=== PATIENT | male | born 1990 | race Two or more races ===

== ENCOUNTER 2020-07-11 14:12 | Emergency (ER) | payer OTHER ==
[~2020-07-11] VITALS: Ht 172.7 cm; Wt 86.2 kg
[2020-07-11 14:49] VITALS: BP 151/85
--- NOTE | 2020-07-11 14:55 | NUR ---
BIB SELF C/O COUGH,ALMARAZ, COUGH, SORE THROAT 7/10 X LAST NIGHT. COWORKER HAD COVID TESTED + LAST WEEK. PMH: DENIES
--- NOTE | 2020-07-11 15:40 | NUR ---
COVID SWAB DONE.
[2020-07-11 15:45] VITALS: BP 151/85
--- NOTE | 2020-07-11 15:45 | NUR ---
Patient discharged with v/s stable. Written and verbal after care instructions given and explained. Patient alert, oriented and verbalized understanding of instructions. Ambulatory with steady gait. All questions addressed prior to discharge. ID band removed. Patient advised to follow up with PMD. Rx of PROMETHZINE&IBUPROFEN given. Patient educated on indication of medication including possible reaction and side effects. Opportunity to ask questions provided and answered.
--- NOTE | 2020-07-12 18:58 | NUR ---
Received + covid result from lab. Copy given to Almita at infection prevention.
== END 2020-07-11 15:45 | disposition home or self-care (01) ==
LOC: MED 14:12
DX: U07.1 COVID-19 (principal); B34.9 Viral infection, unspecified; Z88.0 Allergy status to penicillin
CPT/HCPCS: 99283; U0003

== ENCOUNTER 2020-07-15 17:59 | Emergency (ER) | payer OTHER ==
[~2020-07-15] VITALS: Ht 172.7 cm; Wt 86.2 kg
[2020-07-15 18:08] VITALS: BP 130/78
--- NOTE | 2020-07-15 18:51 | NUR ---
Patient discharged with v/s stable. Written and verbal after care instructions given and explained. Patient alert, oriented and verbalized understanding of instructions. Ambulatory with steady gait. All questions addressed prior to discharge. ID band removed. Patient advised to follow up with PMD. Rx of Promethazine and Cepacol given. Patient educated on indication of medication including possible reaction and side effects. Opportunity to ask questions provided and answered. No nursing care provided in our ER.
== END 2020-07-15 18:51 | disposition home or self-care (01) ==
LOC: MED 17:59
DX: U07.1 COVID-19 (principal); J02.9 Acute pharyngitis, unspecified; R03.0 Elevated blood-pressure reading, without diagnosis of hypertension; Z88.0 Allergy status to penicillin
CPT/HCPCS: 99283

== ENCOUNTER 2020-07-19 16:42 | Emergency (ER) | payer OTHER ==
[~2020-07-19] VITALS: Ht 162.6 cm; Wt 90.7 kg
[2020-07-19 17:22] VITALS: BP 156/111
--- NOTE | 2020-07-19 17:26 | NUR ---
OF1
--- NOTE | 2020-07-19 17:27 | NUR ---
C/O SORE THROAT 2/10 X 2 DAYS. COVID TESTED + 10 DAYS AGO.
[2020-07-19 18:01] VITALS: BP 156/111
--- NOTE | 2020-07-19 18:01 | NUR ---
Patient discharged with v/s stable. Written and verbal after care instructions given and explained. Patient alert, oriented and verbalized understanding of instructions. Ambulatory with steady gait. All questions addressed prior to discharge. ID band removed. Patient advised to follow up with PMD. Rx of PREDNISONE & CHLORASEPTIC given. Patient educated on indication of medication including possible reaction and side effects. Opportunity to ask questions provided and answered.
[2020-07-19] MEDS ORDERED: DOPPLER MC ONE (21:00)
== END 2020-07-19 18:01 | disposition home or self-care (01) ==
LOC: MED 16:42
DX: U07.1 COVID-19 (principal); J02.9 Acute pharyngitis, unspecified; Z88.0 Allergy status to penicillin
CPT/HCPCS: 99283

== ENCOUNTER 2020-09-06 18:17 | Emergency (ER) | payer OTHER ==
[~2020-09-06] VITALS: Ht 188 cm; Wt 90.7 kg
[2020-09-06 18:36] VITALS: BP 151/74
[2020-09-06 19:54] VITALS: BP 132/78
== END 2020-09-06 19:54 | disposition home or self-care (01) ==
LOC: MED 18:17
DX: J02.9 Acute pharyngitis, unspecified (principal); Z88.0 Allergy status to penicillin
CPT/HCPCS: 99283

== ENCOUNTER 2021-03-09 23:11 | Emergency (ER) | payer OTHER ==
[~2021-03-09] VITALS: Ht 162.6 cm; Wt 95.3 kg
[2021-03-09 23:26] VITALS: BP 146/97
[2021-03-10] MEDS ORDERED: ACETAMINOPHEN EXTRA STRENGTH 500 MG TAB PO ONE (01:55)
--- NOTE | 2021-03-10 02:10 | NUR ---
Patient discharged with v/s stable. Written and verbal after care instructions given and explained. Patient verbalized understanding. Ambulatory with steady gait. All questions addressed prior to discharge. Advised to follow up with PMD.
--- NOTE | 2021-03-10 02:12 | NUR ---
PTS LEFT ARM WAS PLACED IN A WRIST SPLINT. P[place] [facility] [place].
== END 2021-03-09 23:25 | disposition home or self-care (01) ==
LOC: MED 23:11
DX: M79.602 Pain in left arm (principal)
CPT/HCPCS: 73090; 99283

== ENCOUNTER 2021-08-11 15:30 | Emergency (ER) | payer OTHER, SELFPAY ==
[~2021-08-11] VITALS: Ht 160 cm; Wt 101.6 kg
[2021-08-11 16:53] VITALS: BP 133/84
[2021-08-11 19:41] VITALS: BP 133/84
--- NOTE | 2021-08-11 19:41 | NUR ---
PATIENT LEFT WITHOUT BEING SEEN BY DR. MORRELL. NO FURTHER CARE PROVIDED FOR PATIENT.
== END 2021-08-11 19:37 | disposition left against medical advice (07) ==
LOC: MED 15:30
DX: J02.9 Acute pharyngitis, unspecified (principal); R51.9 Headache, unspecified; R09.89 Other specified symptoms and signs involving the circulatory and respiratory systems; R11.2 Nausea with vomiting, unspecified; Z53.21 Procedure and treatment not carried out due to patient leaving prior to being seen by health care provider

== ENCOUNTER 2021-10-12 02:30 | Emergency (ER) | payer OTHER, SELFPAY ==
[~2021-10-12] VITALS: Ht 175.3 cm; Wt 107.0 kg
[2021-10-12 02:41] VITALS: BP 141/94
--- NOTE | 2021-10-12 02:45 | NUR ---
PT AMBULATED TO ER BED 11
--- NOTE | 2021-10-12 02:52 | NUR ---
received from triage, here for shortness of breath. Connected to monitoring coordinator, IV line g18 started on left AC, blood collected and handed to laboratory staff. [id number] Dr. Luis at the bedside.
[2021-10-12 03:00] LABS: BASOPHILS # (AUTO) 0.1 K/uL (0.00-0.22); BASOPHILS % (AUTO) 0.7 % (0.0-2.0); EOSINOPHILS # (AUTO) 0.3 K/uL (0-0.4); EOSINOPHILS % (AUTO) 2.8 % (0.0-4.0); HEMATOCRIT 45.3 % (36-52); HEMOGLOBIN 15.1 g/dL (12.0-18.0); LYMPHOCYTES % (AUTO) 31.4 % (20.5-51.1); MEAN CORPUSCULAR HEMOGLOBIN 30 pg (27-31); MEAN CORPUSCULAR HGB CONC 33 g/dL (33-37); MEAN CORPUSCULAR VOLUME 89.2 fL (80-94); MONOCYTES # (AUTO) 0.7 K/uL (0.8-1.0); MONOCYTES % (AUTO) 7.8 % (1.7-9.3); NEUTROPHILS # (AUTO) 5.4 K/uL (1.8-7.7); NEUTROPHILS % (AUTO) 57.3 % (42.2-75.2); PLATELET COUNT (AUTO) 277 K/uL (140-450); RED BLOOD CELL COUNT(AUTO) 5.07 MIL/uL (4.20-6.10); RED CELL DISTRIBUTION WIDTH 14.3 % (11.6-13.7); WHITE BLOOD COUNT (AUTO) 9.5 K/uL (4.8-10.8)
[2021-10-12 03:15] LABS: ALBUMIN 3.1 g/dL (3.4-5.0); ANION GAP 12.1 (8-16); CARBON DIOXIDE 27.6 mmol/L (21-32); CREATININE 1.2 mg/dL (0.6-1.3); POTASSIUM 4.7 mmol/L (3.5-5.1); TOTAL BILIRUBIN 0.5 mg/dL (0.0-1.0)
[2021-10-12] MEDS ORDERED: ALBUTEROL SULFATE/IPRATROPIU 3 ML SOL IH ONE (03:15)
[2021-10-12] MEDS ORDERED: DEXAMETHASONE 4 MG/ML VIAL IVP ONE (03:15)
[2021-10-12] MEDS ORDERED: FUROSEMIDE 40 MG/4 ML VIAL IVP ONE (03:15)
--- NOTE | 2021-10-12 04:14 | NUR ---
Nasopharyngeal swabs taken and sent to laboratory for influenza/covid test.
[2021-10-12] MEDS ORDERED: FURO-570 PO (05:36)
--- NOTE | 2021-10-12 05:50 | NUR ---
Dr. Polanco plans for tele admit,patient informed of the plan of care. Patient decided not to proceed with admission, risks explained by MD. FINLEY sigmed by patient himself.
[2021-10-12 06:45] VITALS: BP 128/75
[2021-10-14] MEDS ORDERED: TAM75 PO (18:01)
== END 2021-10-12 06:30 | disposition home or self-care (01) ==
LOC: MED 02:30
DX: I50.9 Heart failure, unspecified (principal); Z20.822 Contact with and (suspected) exposure to COVID-19; J11.1 Influenza due to unidentified influenza virus with other respiratory manifestations; R06.02 Shortness of breath; R05.9 Cough, unspecified; R50.9 Fever, unspecified; Z79.899 Other long term (current) drug therapy; Z88.0 Allergy status to penicillin
CPT/HCPCS: 36415; 71045; 80053; 83605; 83880; 84484; 85025; 85379; 87040; 87426; 87804; 93005; 94640; 96374; 96375; 99285; J1100; J1940; Q0092

== ENCOUNTER 2021-11-04 23:44 | Emergency (ER) | payer OTHER ==
[~2021-11-04] VITALS: Ht 162.6 cm; Wt 105.7 kg
[~2021-11-04 23:44] MED LIST: FURO-570 PO; TAM75 PO
[2021-11-05 00:36] VITALS: BP 143/95
--- NOTE | 2021-11-05 00:43 | NUR ---
PT TAKEN TO BED 03. PLACED IN GOWN AND GIVEN WARM BLANKET.
--- NOTE | 2021-11-05 00:52 | NUR ---
31 Y/O MALE BIB SELF, C/O DIFFICULTY BREATHING X3 WEEKS. PATIENT PRESENTS TO ED WITH DIFFICULTY INHALING; WORSE WHEN LAYING DOWN AT NIGHT; BILATERAL PEDAL EDEMA +3. 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 DENIES N/V/D; SKIN IS PINK/WARM/DRY; AAOX4 WITH EVEN AND STEADY GAIT; LUNGS CLEAR BL; HR EVEN AND REGULAR; PT DENIES ANY FEVER, CP, OR COUGH AT THIS TIME; PATIENT STATES PAIN OF 0/10 AT THIS TIME; VSS; PATIENT POSITIONED FOR COMFORT; HOB ELEVATED; BEDRAILS UP X2; BED DOWN. ER MD MADE AWARE OF PT STATUS. HX: HF AND LUNG DISEASE ALL: PCN MED: LASIX
--- NOTE | 2021-11-05 00:56 | NUR ---
XRAY AT BEDSIDE
--- NOTE | 2021-11-05 01:10 | NUR ---
LABS, URINE, AND TRINIDAD SWAB COLLECTED AND HANDED TO MINE DEVELOPMENT ENGINEERMIKE
[2021-11-05 01:18] LABS: BASOPHILS # (AUTO) 0.2 K/uL (0.00-0.22); BASOPHILS % (AUTO) 2.4 % (0.0-2.0); EOSINOPHILS # (AUTO) 0.4 K/uL (0-0.4); EOSINOPHILS % (AUTO) 4.6 % (0.0-4.0); HEMATOCRIT 45.1 % (36-52); HEMOGLOBIN 15.2 g/dL (12.0-18.0); LYMPHOCYTES # (AUTO) 2.7 K/uL (2.0-11.5); LYMPHOCYTES % (AUTO) 27.7 % (20.5-51.1); MEAN CORPUSCULAR HEMOGLOBIN 30 pg (27-31); MEAN CORPUSCULAR HGB CONC 34 g/dL (33-37); MEAN CORPUSCULAR VOLUME 88.3 fL (80-94); MONOCYTES # (AUTO) 0.7 K/uL (0.8-1.0); MONOCYTES % (AUTO) 7.2 % (1.7-9.3); NEUTROPHILS # (AUTO) 5.6 K/uL (1.8-7.7); NEUTROPHILS % (AUTO) 58.1 % (42.2-75.2); PLATELET COUNT (AUTO) 279 K/uL (140-450); RED BLOOD CELL COUNT(AUTO) 5.11 MIL/uL (4.20-6.10); WHITE BLOOD COUNT (AUTO) 9.7 K/uL (4.8-10.8)
[2021-11-05 01:31] LABS: ALBUMIN 2.9 g/dL (3.4-5.0); CREATININE 1.1 mg/dL (0.6-1.3); TOTAL BILIRUBIN 0.4 mg/dL (0.0-1.0)
[2021-11-05 01:34] LABS: LIPASE 143 U/L (73-393)
[2021-11-05 01:51] LABS: BARBITURATE, URINE NEGATIVE ng/ml (NEG <=200)
[2021-11-05 01:52] LABS: BENZODIAZEPINE, URINE NEGATIVE ng/mL (NEG <=200); CANNABINOID, URINE NEGATIVE ng/mL (NEG <=50); COCAINE, URINE NEGATIVE ng/mL (NEG <=300); OPIATE, URINE NEGATIVE ng/mL (NEG <=2000); PHENCYCLIDINE SCREEN,URINE NEGATIVE ng/mL (NEG <=25)
--- NOTE | 2021-11-05 02:30 | NUR ---
COVERING MOUNA MCMILLAN FOR LUNCH. PT APPEARS TO BE RESTING. EQUAL RISE AND FALL OF CHEST WALL. PT IN STABLE CONDITION. ALL NEEDS MET AT THIS TIME.
[2021-11-05] MEDS ORDERED: FUROSEMIDE 40 MG/4 ML VIAL IVP SCH (02:45)
--- NOTE | 2021-11-05 03:04 | NUR ---
PT COMPLAINED THAT HE IS STILL SOB. PT PLACED ON 2L/MIN NC, PT IS STILL AT 94%
--- NOTE | 2021-11-05 03:04 | NUR ---
LABS AT BEDSIDE TO DRAW REPEAT TROPONIN
[2021-11-05 04:02] VITALS: BP 138/96
--- NOTE | 2021-11-05 04:02 | NUR ---
Patient discharged with v/s stable. Written and verbal after care instructions given and explained. Patient verbalized understanding. Ambulatory with steady gait. All questions addressed prior to discharge. Advised to follow up with PMD. VSS, A/OX4, AMBULATORY, UNLABORED BREATHING, AND CALM DEMEANOR.
== END 2021-11-05 04:02 | disposition home or self-care (01) ==
LOC: MED 23:44
DX: I50.9 Heart failure, unspecified (principal); R06.00 Dyspnea, unspecified; F15.10 Other stimulant abuse, uncomplicated; Z20.822 Contact with and (suspected) exposure to COVID-19; Z71.6 Tobacco abuse counseling; Z79.899 Other long term (current) drug therapy; Z88.0 Allergy status to penicillin
CPT/HCPCS: 36415; 71045; 80053; 80305; 83690; 83880; 84484; 85025; 93005; 99285

== ENCOUNTER 2022-02-07 04:20 | Emergency (ER) | payer OTHER ==
[~2022-02-07] VITALS: Ht 157.5 cm; Wt 104.3 kg
[2022-02-07 04:23] VITALS: BP 139/83
--- NOTE | 2022-02-07 04:29 | NUR ---
TO BED 12 FOLLOWING TRIAGE WITH C/O SOB WHICH STARTED "LAST NIGHT, WHEN I WAS ASLEEP" PMH : CHF
--- NOTE | 2022-02-07 04:49 | NUR ---
DR MORRELL AT BEDSIDE FOR EXAM
--- NOTE | 2022-02-07 04:58 | NUR ---
RADIOLOGY AT BEDSIDE.
[2022-02-07 05:20] VITALS: BP 139/83
== END 2022-02-07 05:20 | disposition home or self-care (01) ==
LOC: MED 04:20
DX: R06.00 Dyspnea, unspecified (principal); I50.9 Heart failure, unspecified; F15.90 Other stimulant use, unspecified, uncomplicated; Z88.0 Allergy status to penicillin; Z79.899 Other long term (current) drug therapy
CPT/HCPCS: 71045; 99283; Q0092

== ENCOUNTER 2022-04-29 04:30 | Emergency (ER) | payer OTHER ==
[~2022-04-29] VITALS: Ht 157.5 cm; Wt 104.4 kg
[2022-04-29 04:30] VITALS: BP 141/90
--- NOTE | 2022-04-29 04:43 | NUR ---
Dr. Rodrigez examining patient.
--- NOTE | 2022-04-29 04:43 | NUR ---
PT TAKEN TO BED 5
--- NOTE | 2022-04-29 04:49 | NUR ---
X-Ray at bedside.
[2022-04-29] MEDS ORDERED: ALBU0.0912 IH (04:50)
[2022-04-29] MEDS ORDERED: PRED20TA5 PO (04:50)
[2022-04-29] MEDS ORDERED: ASPIRIN 325 MG TAB PO ONE (05:10)
[2022-04-29 05:34] LABS: BASOPHILS # (AUTO) 0.1 K/uL (0.00-0.22); BASOPHILS % (AUTO) 0.8 % (0.0-2.0); EOSINOPHILS # (AUTO) 0.4 K/uL (0-0.4); EOSINOPHILS % (AUTO) 4.4 % (0.0-4.0); HEMATOCRIT 40.3 % (36-52); HEMOGLOBIN 13.7 g/dL (12.0-18.0); LYMPHOCYTES # (AUTO) 2.9 K/uL (2.0-11.5); LYMPHOCYTES % (AUTO) 35.6 % (20.5-51.1); MEAN CORPUSCULAR HEMOGLOBIN 30 pg (27-31); MEAN CORPUSCULAR HGB CONC 34 g/dL (33-37); MONOCYTES # (AUTO) 0.8 K/uL (0.8-1.0); MONOCYTES % (AUTO) 9.2 % (1.7-9.3); NEUTROPHILS # (AUTO) 4.1 K/uL (1.8-7.7); PLATELET COUNT (AUTO) 234 K/uL (140-450); RED BLOOD CELL COUNT(AUTO) 4.57 MIL/uL (4.20-6.10); RED CELL DISTRIBUTION WIDTH 13.8 % (11.6-13.7); WHITE BLOOD COUNT (AUTO) 8.2 K/uL (4.8-10.8)
--- NOTE | 2022-04-29 05:53 | NUR ---
32/M BIB SELF C/C OF COUGH X2DAYS. PER PATIENT HE HAS BEEN FEELING WEAK AND HAVING TROUBLE CATCHING HIS BREATH. PATIETN STATED DENIES FEVER/CHILLS/N/V/CP AT THIS TIME. PER PATIETN PAIN EXACERBATES WHEN HIS COUGH OCCURS. PATIETN AAOX4 AND AMBULATORY. PMHX CHF RX DIGOXIN, SPIRONOLACTONE ALLERGIES PCN
[2022-04-29 06:00] LABS: ANION GAP 15.5 (8-16); CARBON DIOXIDE 21.6 mmol/L (21-32); CREATININE 0.8 mg/dL (0.6-1.3); POTASSIUM 4.1 mmol/L (3.5-5.1)
[2022-04-29] MEDS ORDERED: FUROSEMIDE 40 MG TAB PO ONE (06:00)
--- NOTE | 2022-04-29 06:00 | NUR ---
PATIENT STATED HE TOOK PERSONAL HOME MEDS SPIRONOLOCTONE, CARVEDILOL, DIGOXIN AT HOME PRIOR TO ARRIVING TO THE ED.
[2022-04-29 06:16] LABS: BARBITURATE, URINE NEGATIVE ng/ml (NEG <=200)
[2022-04-29 06:17] LABS: BENZODIAZEPINE, URINE NEGATIVE ng/mL (NEG <=200); CANNABINOID, URINE NEGATIVE ng/mL (NEG <=50); COCAINE, URINE NEGATIVE ng/mL (NEG <=300); OPIATE, URINE NEGATIVE ng/mL (NEG <=2000); PHENCYCLIDINE SCREEN,URINE NEGATIVE ng/mL (NEG <=25)
[2022-04-29 06:20] LABS: TOTAL BILIRUBIN 0.4 mg/dL (0.0-1.0)
--- NOTE | 2022-04-29 06:41 | NUR ---
Dr. Morales examining patient.
[2022-04-29 07:07] VITALS: BP 140/90
== END 2022-04-29 07:23 | disposition home or self-care (01) ==
LOC: MED 04:30
DX: R05.9 Cough, unspecified (principal); Z20.822 Contact with and (suspected) exposure to COVID-19; I50.9 Heart failure, unspecified; Z88.0 Allergy status to penicillin; Z79.899 Other long term (current) drug therapy
CPT/HCPCS: 36415; 71045; 80053; 80305; 83880; 84484; 85025; 87426; 87804; 93005; 99285; G0482; Q0092

== ENCOUNTER 2022-05-06 07:50 | Emergency (ER) | payer OTHER ==
[~2022-05-06] VITALS: Ht 157.5 cm; Wt 106.2 kg
[2022-05-06 07:57] VITALS: BP 146/111
--- NOTE | 2022-05-06 08:07 | NUR ---
BIB MOTHER C/O SOB, SORE THROAST, COUGH X 2 DAYS. RR 36, P 95,O2 SAT 97 % AT THIS TIME. STOP METH 2 DAYS AGO. PMH: CHF, ANXIETY, HTN, DRUG ABUSE MED: CARVEDILOL, SPIRONOLACTONE, DIGOXIN, ALBUTEROL
--- NOTE | 2022-05-06 08:37 | NUR ---
PATIENT LEFT WITHOUT BEING SEEN BY DR.DELA LEON. NO FURTHER CARE PROVIDED FOR PATIENT.
[2022-05-06 09:01] LABS: APPEARANCE,URINE CLEAR (CLEAR); BILIRUBIN,URINE NEGATIVE (NEGATIVE); BLOOD, URINE NEGATIVE (NEGATIVE); COLOR,URINE DARK YELLOW (YELLOW); LEUKOCYTE ESTERASE ,URINE NEGATIVE (NEGATIVE); NITRITE, URINE NEGATIVE (NEGATIVE); UGLUCOSE NEGATIVE (NEGATIVE)
== END 2022-05-06 08:37 | disposition left against medical advice (07) ==
LOC: MED 07:50
DX: R06.02 Shortness of breath (principal); F41.9 Anxiety disorder, unspecified; I50.9 Heart failure, unspecified; Z79.899 Other long term (current) drug therapy; Z88.0 Allergy status to penicillin; Z53.21 Procedure and treatment not carried out due to patient leaving prior to being seen by health care provider
CPT/HCPCS: 81003; 99281; 99282

== ENCOUNTER 2022-05-17 14:56 | Emergency (ER) | payer OTHER ==
[~2022-05-17] VITALS: Ht 162.6 cm; Wt 108.4 kg
[2022-05-17 15:02] VITALS: BP 134/103
--- NOTE | 2022-05-17 15:35 | NUR ---
Dr. Dumont evaluating patient at bedside.
--- NOTE | 2022-05-17 15:39 | NUR ---
Patient does not wish to proceed with medical care recommended by Dr. Dumont. Patient given information related to possible complications, up to and including , which could occur as a result of leaving hospital at this time. Patient verbalizes understanding of risks involved leaving against medical advice. Patient has signed AMA form.
== END 2022-05-17 15:39 | disposition left against medical advice (07) ==
LOC: MED 14:56
DX: R06.02 Shortness of breath (principal); I50.9 Heart failure, unspecified; Z88.0 Allergy status to penicillin
CPT/HCPCS: 99282

== ENCOUNTER 2022-06-04 00:18 | Emergency (ER) | payer OTHER ==
[~2022-06-04] VITALS: Ht 167.6 cm; Wt 104.3 kg
[2022-06-04 00:25] VITALS: BP 131/85
--- NOTE | 2022-06-04 00:28 | NUR ---
TO BED AMBULATORY
--- NOTE | 2022-06-04 00:48 | NUR ---
DR. YARBROUGH AT BEDSIDE FOR EXAM
[2022-06-04] MEDS ORDERED: FUROSEMIDE 40 MG/4 ML VIAL IVP ONE (00:55)
--- NOTE | 2022-06-04 00:59 | NUR ---
LAB AT BEDSIDE
--- NOTE | 2022-06-04 01:05 | NUR ---
FIRST CONTACT WITH PT. SEE ASSESSMENT. IV ESTABLISHED, BLOOD DRAWN AND SENT TO LAB. PT TOLERATED WELL. UPDATED PT ON POC WITH FULL RETURNED VERBAL UNDERSTANDING.
--- NOTE | 2022-06-04 01:06 | NUR ---
XRAY AT BEDSIDE
[2022-06-04 01:07] LABS: BASOPHILS # (AUTO) 0.1 K/uL (0.00-0.22); BASOPHILS % (AUTO) 1.2 % (0.0-2.0); EOSINOPHILS # (AUTO) 0.2 K/uL (0-0.4); HEMOGLOBIN 14.8 g/dL (12.0-18.0); LYMPHOCYTES % (AUTO) 25.6 % (20.5-51.1); MEAN CORPUSCULAR HEMOGLOBIN 31 pg (27-31); MEAN CORPUSCULAR HGB CONC 35 g/dL (33-37); MEAN CORPUSCULAR VOLUME 88.7 fL (80-94); NEUTROPHILS # (AUTO) 7.5 K/uL (1.8-7.7); NEUTROPHILS % (AUTO) 63.2 % (42.2-75.2); PLATELET COUNT (AUTO) 295 K/uL (140-450); RED BLOOD CELL COUNT(AUTO) 4.85 MIL/uL (4.20-6.10); RED CELL DISTRIBUTION WIDTH 13.8 % (11.6-13.7); WHITE BLOOD COUNT (AUTO) 11.9 K/uL (4.8-10.8)
[2022-06-04] MEDS ORDERED: LORazepam 1 MG TAB PO ONE (01:20)
[2022-06-04 01:24] LABS: ALBUMIN 2.8 g/dL (3.4-5.0); ANION GAP 13.7 (8-16); CARBON DIOXIDE 23.4 mmol/L (21-32); CREATININE 1.3 mg/dL (0.6-1.3); POTASSIUM 4.1 mmol/L (3.5-5.1); TOTAL BILIRUBIN 0.5 mg/dL (0.0-1.0)
[2022-06-04] MEDS ORDERED: LORazepam 1 MG TAB ONE (01:26)
--- NOTE | 2022-06-04 02:34 | NUR ---
PT RESTING, NO S/S OF DISTRESS NOTED. DENIES ANY PAIN AT THIS TIME. PT UPDATED ON POC WITH FULL RETURNED VERBAL UNDERSTANDING. WILL CONTINUE TO MONITOR. AWAITING RESULTS.
[2022-06-04 03:31] LABS: BARBITURATE, URINE NEGATIVE ng/ml (NEG <=200); BENZODIAZEPINE, URINE NEGATIVE ng/mL (NEG <=200); CANNABINOID, URINE NEGATIVE ng/mL (NEG <=50); COCAINE, URINE NEGATIVE ng/mL (NEG <=300); OPIATE, URINE NEGATIVE ng/mL (NEG <=2000); PHENCYCLIDINE SCREEN,URINE NEGATIVE ng/mL (NEG <=25)
--- NOTE | 2022-06-04 03:49 | NUR ---
SECOND EKG DONE AND GIVEN TO DR ATKINSON. 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 SP02 99% 2L . DENIES SOB AND CP . HOB ELEVATED AND BED AT LOWEST POSITION
[2022-06-04 04:27] VITALS: BP 134/93
--- NOTE | 2022-06-04 04:34 | NUR ---
The patient's care was reviewed and supervised by Divina Fraga RN, RN.
== END 2022-06-04 04:27 | disposition home or self-care (01) ==
LOC: MED 00:18
DX: I50.9 Heart failure, unspecified (principal); I25.10 Atherosclerotic heart disease of native coronary artery without angina pectoris; F15.90 Other stimulant use, unspecified, uncomplicated; Z88.0 Allergy status to penicillin
CPT/HCPCS: 36415; 71045; 80053; 80305; 83880; 84484; 85025; 93005; 96374; 99285; J1940; Q0092

== ENCOUNTER 2022-06-11 02:15 | Inpatient (IN) | payer OTHER ==
[~2022-06-11] VITALS: Ht 172.7 cm; Wt 103.0 kg
[2022-06-11 02:27] VITALS: BP 110/90
[2022-06-11] MEDS ORDERED: FUROSEMIDE 100 MG/10 ML VIAL IVP ONE (02:40)
[2022-06-11] MEDS ORDERED: FUROSEMIDE 40 MG TAB PO ONE (02:40)
--- NOTE | 2022-06-11 02:55 | NUR ---
PT TO BED 11
[2022-06-11 03:01] LABS: BASOPHILS # (AUTO) 0.1 K/uL (0.00-0.22); BASOPHILS % (AUTO) 1.1 % (0.0-2.0); EOSINOPHILS # (AUTO) 0.3 K/uL (0-0.4); EOSINOPHILS % (AUTO) 2.7 % (0.0-4.0); HEMATOCRIT 44.8 % (36-52); HEMOGLOBIN 14.7 g/dL (12.0-18.0); LYMPHOCYTES # (AUTO) 2.6 K/uL (2.0-11.5); LYMPHOCYTES % (AUTO) 23.7 % (20.5-51.1); MEAN CORPUSCULAR HEMOGLOBIN 30 pg (27-31); MEAN CORPUSCULAR HGB CONC 33 g/dL (33-37); MEAN CORPUSCULAR VOLUME 90.5 fL (80-94); MONOCYTES # (AUTO) 0.8 K/uL (0.8-1.0); MONOCYTES % (AUTO) 7.4 % (1.7-9.3); NEUTROPHILS # (AUTO) 7.2 K/uL (1.8-7.7); NEUTROPHILS % (AUTO) 65.1 % (42.2-75.2); PLATELET COUNT (AUTO) 258 K/uL (140-450); RED BLOOD CELL COUNT(AUTO) 4.94 MIL/uL (4.20-6.10); RED CELL DISTRIBUTION WIDTH 14.1 % (11.6-13.7)
[2022-06-11 03:09] LABS: ALBUMIN 2.9 g/dL (3.4-5.0); ANION GAP 14.3 (8-16); CARBON DIOXIDE 24.1 mmol/L (21-32); CREATININE 1.2 mg/dL (0.6-1.3); POTASSIUM 4.4 mmol/L (3.5-5.1); TOTAL BILIRUBIN 0.4 mg/dL (0.0-1.0)
[2022-06-11] MEDS ORDERED: ASPIRIN 325 MG TAB PO ONE (06:05)
--- NOTE | 2022-06-11 06:05 | NUR ---
PATIENT STABLE SLEEPING AT THIS TIME VITALS SIGNS IN NORMAL LIMITS ST 101 ON MONITOR SPO2 99 % AT 4 LITERS NC
[2022-06-11] MEDS ORDERED: LORazepam 2 MG/ML VIAL IVP PRN (06:35)
[2022-06-11] MEDS ORDERED: HYDROcodone/APAP 5/325 MG 1 TAB TAB PO PRN (06:35)
[2022-06-11] MEDS ORDERED: ONDANSETRON 4 MG/2 ML VIAL IVP PRN (06:35)
[2022-06-11] MEDS ORDERED: ACETAMINOPHEN 325 MG TAB PO PRN (06:35)
--- NOTE | 2022-06-11 06:45 | NUR ---
PATIENT FEELING BETTER VITALS SIGNS IN NORMAL LIMITS NOT COMPLAINING OF PAIN OR SOB
--- NOTE | 2022-06-11 07:45 | NUR ---
RECEIVED REPORT FROM ED NURSE CATINA LYN FOR CONTINUITY OF CARE. PT WAS TRANSPORTED TO UNIT VIA GURNEY, AND WAS ABLE TO AMBULATE TO THE BEDSIDE INDEPENDENTLY. PT IS A/OX4, BREATHING IS EVEN, REGULAR, MILDLY LABORED ON ROOM AIR. PT STATED HIS SOB IS GETTING BETTER, AND IS AGGRAVATED WITH WALKING AND LYING SUPINE. PT IS CONTINENT OF THE BOWELS AND BLADDER, SKIN IS INTACT. NO COMPLAINTS OF PAIN NOTED AT THIS TIME. IV ON THE LEFT HAND IS PATENT, WITH DRY AND CLEAN DRESSING. PT IS IN STABLE CONDITION.
--- NOTE | 2022-06-11 07:52 | NUR ---
Patient will be admitted to care of Dr Chicas. Admited to Telemetry. Will go to room 119A. Belongings list completed. Report to Clinton FREIRE.
[2022-06-11 08:00] VITALS: BP 113/80
--- NOTE | 2022-06-11 08:30 | NUR ---
MOVED PT TO ROOM 106A VIA BED. PT IN STABLE CONDITION.
[2022-06-11] MEDS: FUROSEMIDE 40 MG/4 ML VIAL IVP SCH ×2 (08:59→20:57)
[2022-06-11] MEDS: ENOXAPARIN 40 MG/0.4 ML SYR SUBQ SCH (08:59)
--- NOTE | 2022-06-11 09:45 | NUR ---
PT VISUALLY ASSESSED, CURRENTLY SLEEPING. NO SIGNS OF PAIN OR DISTRESS NOTED AT THIS TIME.
--- NOTE | 2022-06-11 10:32 | NUR ---
PATIENT HAS BEEN SCREENED AND CATEGORIZED MODERATE NUTRITION RISK. PATIENT WILL BE SEEN WITHIN 3-5 DAYS OF ADMISSION. 06/11/22-06/16/[address] BY [address]SI PE[address] RD
--- NOTE | 2022-06-11 11:30 | NUR ---
PT VISUALLY ASSESSED, CURRENTLY SLEEPING. NO SIGNS OF PAIN OR DISTRESS NOTED AT THIS TIME.
[2022-06-11 12:00] VITALS: BP 118/80
--- NOTE | 2022-06-11 13:00 | NUR ---
HEAD OF GLOBAL STRATEGIC [employer]NERSHIPS AT THE BEDSIDE
--- NOTE | 2022-06-11 13:15 | NUR ---
ATTEMPTED TO MEET PT AT BEDSIDE TO COMPLETE ASSESSMENT, HOWEVER, PT BEING SEEN BY CONSERVATION POLICY ANALYST.
[2022-06-11 16:00] VITALS: BP 124/84
--- NOTE | 2022-06-11 17:00 | NUR ---
ADMINISTERED PRN ATIVAN FOR ANXIETY AND SOB. SPO2 ON ROOM AIR 96%.
--- NOTE | 2022-06-11 19:05 | NUR ---
ENDORSED PT TO NIGHTSHIFT NURSE EDMUNDO FOR CONTINUITY OF CARE. PT IN STABLE CONDITION.
--- NOTE | 2022-06-11 19:59 | NUR ---
GET THE REPORT FROM MORNING NURSE YVONNE, PATIENT IS LYING ON BED, PATIENT IS ALERT ORIENTED X4, ALL FALL PRECAUTION MEASURE ARE IN PLACE, CALL LIGHT IS WITHIN THE REACH, WILL CONTINUE TO MONITOR PATIENT.
[2022-06-11 20:00] VITALS: BP 133/86
--- NOTE | 2022-06-11 21:39 | NUR ---
PATIENT IS LYING ON BED,VITAL SIGN IS WITHIN THE NORMAL RANGE ,ALL SCHEDULE MEDICATION IS GIVEN PER DOCTOR ORDER, ALL SCHEDULE MEDICATION IS GIVEN PER DOCTOR ORDER, CALL LIGHT IS WITHIN THE REACH, WILL CONTINUE TO MONITOR PATIENT.
[2022-06-12] VITALS: BP 119/68
--- NOTE | 2022-06-12 01:13 | NUR ---
VITAL SIGN IS WITHIN THE NORMAL RANGE, PATIENT IS LYING ON BED, NO ANY COMPLAIN OF PAIN OR SHORTNESS OF BREATH AT THIS TIME, CALL LIGHT IS WITHIN THE REACH, WILL CONTINUE TO MONITOR PATIENT.
--- NOTE | 2022-06-12 02:50 | NUR ---
PATIENT IS COMPLAINING OF PAIN 3/10 , GAVE TYLENOL 650MG PO PRN PER DOCTOR ORDER, CALL LIGHT IS WITHIN THE REACH, WILL CONTINUE TO MONITOR PAIN.
--- NOTE | 2022-06-12 03:06 | NUR ---
PATIENT AWAKE, ALERT, WANTS A SNACK. PROVIDED MILK AND POWER CRACKERS AND WATER PER REQUEST. PT WITH PAIN IN HEADACHE, GAVE TYLENOL 650MG FOR PAIN. PATIENT IN NO OTHER DISTRESS. WILL CONTINUE TO MONITOR. CALL LIGHT WITHIN REACH.
[2022-06-12 04:07] VITALS: BP 115/70
--- NOTE | 2022-06-12 04:44 | NUR ---
VITAL SIGN IS WITHIN THE NORMAL RANGE, NO ANY COMPLAIN OF PAIN OR SOB AT THIS TIME, CALL LIGHT IS WITHIN THE REACH, WILL CONTINUE TO MONITOR PATIENT.
[2022-06-12 07:02] LABS: BASOPHILS # (AUTO) 0.1 K/uL (0.00-0.22); BASOPHILS % (AUTO) 1.3 % (0.0-2.0); EOSINOPHILS # (AUTO) 0.3 K/uL (0-0.4); EOSINOPHILS % (AUTO) 3.1 % (0.0-4.0); HEMATOCRIT 42.4 % (36-52); HEMOGLOBIN 14.5 g/dL (12.0-18.0); LYMPHOCYTES # (AUTO) 2.4 K/uL (2.0-11.5); MEAN CORPUSCULAR HEMOGLOBIN 30 pg (27-31); MEAN CORPUSCULAR HGB CONC 34 g/dL (33-37); MEAN CORPUSCULAR VOLUME 88.6 fL (80-94); MONOCYTES # (AUTO) 0.9 K/uL (0.8-1.0); MONOCYTES % (AUTO) 8.8 % (1.7-9.3); NEUTROPHILS # (AUTO) 6.2 K/uL (1.8-7.7); NEUTROPHILS % (AUTO) 62.8 % (42.2-75.2); PLATELET COUNT (AUTO) 271 K/uL (140-450); RED BLOOD CELL COUNT(AUTO) 4.79 MIL/uL (4.20-6.10); WHITE BLOOD COUNT (AUTO) 9.8 K/uL (4.8-10.8)
--- NOTE | 2022-06-12 07:06 | NUR ---
GAVE REPORT TO THE MORNING NURSE LANA FOR CONTINUOS OF CARE, PATIENT IS STABLE.
[2022-06-12 07:20] LABS: ALBUMIN 2.6 g/dL (3.4-5.0); ANION GAP 13.9 (8-16); CARBON DIOXIDE 24.6 mmol/L (21-32); CREATININE 0.9 mg/dL (0.6-1.3); MAGNESIUM 1.9 mg/dL (1.8-2.4); POTASSIUM 3.5 mmol/L (3.5-5.1); TOTAL BILIRUBIN 0.6 mg/dL (0.0-1.0)
--- NOTE | 2022-06-12 07:23 | NUR ---
GOT REPORT FROM THE NIGHT NURSE, PT SLEEPING NO SOB. [id number]
[2022-06-12 08:00] VITALS: BP 130/82
[2022-06-12] MEDS: ENOXAPARIN 40 MG/0.4 ML SYR SUBQ SCH (08:19)
[2022-06-12] MEDS: FUROSEMIDE 40 MG/4 ML VIAL IVP SCH (08:21)
[2022-06-12] MEDS ORDERED: ASPIRIN 81 MG TAB.CHEW PO SCH (09:00)
[2022-06-12] MEDS ORDERED: lisinopriL 5 MG TAB PO SCH (13:20)
[2022-06-12] MEDS ORDERED: Potassium Chloride PO (13:51)
[2022-06-12] MEDS ORDERED: LISI5TAB24 PO (13:51)
[2022-06-12] MEDS ORDERED: FURO40TA9 PO (13:51)
[2022-06-12] MEDS ORDERED: CARV3.122 PO (13:51)
[2022-06-12 15:37] VITALS: BP 127/76
--- NOTE | 2022-06-12 15:50 | NUR ---
DC PLANNING SW MET WITH PT AT BEDSIDE TO COMPLETE ASSESSMENT. PT REPORTS RESIDING IN A SINGLE STORY HOME W/ HIS FAMILY AT THE ADDRESS LISTED. PT IDENTIFIES SIRISHA DANIELS, MOM, EMERGENCY CONTACT AND MDM. PATIENT DENIES HAVING AD IN PLACE AND DECLINED AD OFFERED BY SW. PATIENT REPORTS MEETING WITH PCP DR. JOSUÉ MENDEZ NEEDED, LAST VISIT; 6 MONTHS AGO. PT REPORTS MEDICATION COMPLIANCE AND DENIES BARRIERS IN ACCESS TO NEEDED MEDICATIONS. PATIENT REPORTS RECEIVING MEDIATION FROM [employer] [facility] [address] [facility] IN [place], WHEN NEEDED. SW SPOKE TO PATIENT ABOUT THE IMPORTANCE OF F/UP CARE, PT RECEPTIVE AND ACCEPTED SW OFFER TO SCHEDULE F/UP. PATIENT REPORTS BEING INDEPENDENT IN ALL ACTIVITIES AND DENIES USE OF DME.PT COMPLETES ALL ADL'S INDEPENDENTLY. PT DENIES MENTAL HEALTH HX. PT REPORTS CHRONIC HX OF SUBSTANCE USE, SUBSTANCE OF USE; METHAMPHETAMINES. PATIENT REPORTS USE SPANNING OVER THE LAST 15 YRS. PATIENT REPORTS USE EVERYDAY. PT LAST USE 1 WEEK AGO. PT REPORTS ALCOHOL USE HOWEVER REPORTS LAST ALCOHOL USE 6 MONTHS AGO. PATIENT REPORTS ALCOHOL USE WOULD LAST "ALL DAY" STARTING AT 4AM LASTING UNTIL HE PASSED OUT. SW INQUIRED ON TRIGGERS THAT RESULT IN USE, PT REPORTS NO KNOWN TRIGGERS AND REPORTS HE LIKES THE FEELING OF BEING HIGH. SW PROVIDED PATIENT WITH PSYCHO EDUCATION AND CORRECTION USE, PT RECEPTIVE. PT ACCEPTED SUBSTANCE USE RESOURCES OFFERED BY [facility] AND MENTAL HEALTH RESOURCES OFFERED BY [facility]. PATIENT DENIES HX OF DIABETES, HH AND DIALYSIS TX. PT REPORTS DC PLAN IS TO RETURN HOME WITH FAMILY PROVIDING TRANSPORTATION. Addendum: 06/12/22 at 1647 by Xiomara JUAREZ SW OUTREACHED TO PATIENTS PCP OFFICE AT [phone]. SPOKE WITH LARA PATIÑOT SCHEDULED FOR 06/14/22 AT 11:40AM AT [address] [facility] . [facility] CALLED PATIENT, HOWEVER, NO ANSWER. [facility] LEFT MESSAGE WITH APPT DETAILS THAT INCLUDED DATE, TIME, ADDRESS, PHONE NUMBER AND
--- NOTE | 2022-06-12 16:18 | NUR ---
PT DISCHARGED HOME, DISCHARGE INSTRUCTION IS GIVEN, IV AND ID BAND REMOVED PT ESCORTED ON W\C WITH OUT DISCOMFORT.[id number]
[2022-06-12] MEDS ORDERED: FUROSEMIDE 40 MG TAB PO SCH (17:00)
[2022-06-12] MEDS ORDERED: carvediloL 3.125 MG TAB PO SCH (21:00)
[2022-06-12] MEDS ORDERED: POTASSIUM CHLORIDE 10 MEQ TABER PO SCH (21:00)
== END 2022-06-12 16:41 | disposition home or self-care (01) | DRG 194 ==
LOC: MED 02:15 → OBSVTOIN 06:36 → MTU 06:36
PROVIDERS: ADMIT Hospitalist; ATTEND Hospitalist
DX: I50.23 Acute on chronic systolic (congestive) heart failure (principal); E43 Unspecified severe protein-calorie malnutrition; I27.20 Pulmonary hypertension, unspecified; I42.8 Other cardiomyopathies; F15.90 Other stimulant use, unspecified, uncomplicated; Z20.822 Contact with and (suspected) exposure to COVID-19; Z91.14 Patient's other noncompliance with medication regimen; Z88.0 Allergy status to penicillin; Z68.34 Body mass index [BMI] 34.0-34.9, adult
CPT/HCPCS: 36415; 71045; 80053; 83735; 83880; 84484; 85025; 87081; 93005; 96374; 99285; J1650; J1940; J2060; Q0092

== ENCOUNTER 2022-06-16 05:48 | Emergency (ER) | payer OTHER ==
[~2022-06-16] VITALS: Ht 172.7 cm; Wt 100.7 kg
[~2022-06-16 05:48] MED LIST changes: +CARV3.122 PO; -FURO-570 PO; +FURO40TA9 PO; +LISI5TAB24 PO; +Potassium Chloride PO; -TAM75 PO
[2022-06-16 06:06] VITALS: BP 126/74
--- NOTE | 2022-06-16 06:09 | NUR ---
TO LOBBY A/W BED AMBULATORY
--- NOTE | 2022-06-16 06:30 | NUR ---
PT AMBULATED TO BED #4
--- NOTE | 2022-06-16 06:32 | NUR ---
Patient lying in bed, A/Ox4, chest rise and fall symmetrical, no c/o pain or s/s of discomfort.
[2022-06-16] MEDS ORDERED: FUROSEMIDE 40 MG/4 ML VIAL IVP ONE (06:40)
--- NOTE | 2022-06-16 07:03 | NUR ---
Patient urinated 350 mL.
--- NOTE | 2022-06-16 07:14 | NUR ---
Change of shift report given to Carlos FREIRE. Carlos FREIRE verbalized understanding of report, no further questions.
[2022-06-16 07:26] LABS: BASOPHILS # (AUTO) 0.1 K/uL (0.00-0.22); EOSINOPHILS # (AUTO) 0.4 K/uL (0-0.4); EOSINOPHILS % (AUTO) 3.8 % (0.0-4.0); HEMATOCRIT 45.4 % (36-52); HEMOGLOBIN 15.2 g/dL (12.0-18.0); LYMPHOCYTES # (AUTO) 2.9 K/uL (2.0-11.5); LYMPHOCYTES % (AUTO) 28.8 % (20.5-51.1); MEAN CORPUSCULAR HEMOGLOBIN 30 pg (27-31); MEAN CORPUSCULAR HGB CONC 34 g/dL (33-37); MEAN CORPUSCULAR VOLUME 88.5 fL (80-94); MONOCYTES # (AUTO) 1.1 K/uL (0.8-1.0); MONOCYTES % (AUTO) 10.3 % (1.7-9.3); NEUTROPHILS # (AUTO) 5.7 K/uL (1.8-7.7); NEUTROPHILS % (AUTO) 56.1 % (42.2-75.2); PLATELET COUNT (AUTO) 302 K/uL (140-450); RED BLOOD CELL COUNT(AUTO) 5.13 MIL/uL (4.20-6.10); RED CELL DISTRIBUTION WIDTH 14.1 % (11.6-13.7); WHITE BLOOD COUNT (AUTO) 10.2 K/uL (4.8-10.8)
--- NOTE | 2022-06-16 07:41 | NUR ---
pt ambulated to restroom, feels better about sob, speaking full sentences, denies any pain, st on cm, hr 103, o2 sat 99% ra, sr up times 2, awaits dispo.
[2022-06-16 07:43] LABS: ALBUMIN 3.2 g/dL (3.4-5.0); CARBON DIOXIDE 23.7 mmol/L (21-32); CREATININE 1.1 mg/dL (0.6-1.3); TOTAL BILIRUBIN 0.4 mg/dL (0.0-1.0)
--- NOTE | 2022-06-16 07:54 | NUR ---
pt signed AMA form w Dr Mckeon. pt ambulatory and steady gait, pt suggested to follow up w pmd in 2-3 days, pt denies any pain, spoke to MD prior walking away
[2022-06-16 07:56] VITALS: BP 116/80
[2022-06-16 07:57] LABS: ANION GAP 14.2 (8-16); POTASSIUM 3.9 mmol/L (3.5-5.1)
== END 2022-06-16 07:54 | disposition left against medical advice (07) ==
LOC: MED 05:48
DX: R06.02 Shortness of breath (principal); F41.9 Anxiety disorder, unspecified; F15.90 Other stimulant use, unspecified, uncomplicated; Z88.0 Allergy status to penicillin; Z79.899 Other long term (current) drug therapy
CPT/HCPCS: 36415; 71045; 80053; 83880; 84484; 85025; 93005; 96374; 99285; J1940

== ENCOUNTER 2022-06-21 01:34 | Emergency (ER) | payer OTHER ==
[~2022-06-21] VITALS: Ht 172.7 cm; Wt 101.6 kg
[2022-06-21 01:43] VITALS: BP 123/77
--- NOTE | 2022-06-21 01:43 | NUR ---
TO BED AMBULATORY
[2022-06-21] MEDS ORDERED: FUROSEMIDE 40 MG/4 ML VIAL IVP ONE (01:55)
--- NOTE | 2022-06-21 02:01 | NUR ---
X-RAY AT BEDSIDE.
[2022-06-21] MEDS ORDERED: HYDROXYZINE HYDROCHLORIDE 25 MG TAB PO STA (02:10)
[2022-06-21 02:11] LABS: BASOPHILS # (AUTO) 0.1 K/uL (0.00-0.22); BASOPHILS % (AUTO) 1.3 % (0.0-2.0); EOSINOPHILS # (AUTO) 0.3 K/uL (0-0.4); EOSINOPHILS % (AUTO) 3.2 % (0.0-4.0); HEMATOCRIT 39.8 % (36-52); HEMOGLOBIN 13.4 g/dL (12.0-18.0); LYMPHOCYTES # (AUTO) 2.7 K/uL (2.0-11.5); LYMPHOCYTES % (AUTO) 25.8 % (20.5-51.1); MEAN CORPUSCULAR HEMOGLOBIN 30 pg (27-31); MEAN CORPUSCULAR HGB CONC 34 g/dL (33-37); MEAN CORPUSCULAR VOLUME 88.9 fL (80-94); MONOCYTES # (AUTO) 1.2 K/uL (0.8-1.0); MONOCYTES % (AUTO) 11.8 % (1.7-9.3); NEUTROPHILS # (AUTO) 6.1 K/uL (1.8-7.7); NEUTROPHILS % (AUTO) 57.9 % (42.2-75.2); PLATELET COUNT (AUTO) 244 K/uL (140-450); RED BLOOD CELL COUNT(AUTO) 4.47 MIL/uL (4.20-6.10); RED CELL DISTRIBUTION WIDTH 13.7 % (11.6-13.7); WHITE BLOOD COUNT (AUTO) 10.5 K/uL (4.8-10.8)
[2022-06-21 02:26] LABS: ALBUMIN 2.8 g/dL (3.4-5.0); ANION GAP 7.4 (8-16); CARBON DIOXIDE 29.2 mmol/L (21-32); CREATININE 1.2 mg/dL (0.6-1.3); POTASSIUM 3.6 mmol/L (3.5-5.1); TOTAL BILIRUBIN 0.3 mg/dL (0.0-1.0)
[2022-06-21] MEDS ORDERED: IBUPROFEN 800 MG TAB PO ONE (03:25)
[2022-06-21] MEDS ORDERED: ATA25 PO (03:29)
[2022-06-21 03:35] VITALS: BP 118/81
--- NOTE | 2022-06-21 03:36 | NUR ---
Patient discharged with v/s stable. Written and verbal after care instructions given and explained. Patient alert, oriented and verbalized understanding of instructions. Ambulatory with steady gait. All questions addressed prior to discharge. ID band removed. Patient advised to follow up with PMD. Rx of Atarax HCL given. Patient educated on indication of medication including possible reaction and side effects. Opportunity to ask questions provided and answered.
== END 2022-06-21 03:35 | disposition home or self-care (01) ==
LOC: MED 01:34
DX: I50.9 Heart failure, unspecified (principal); Z20.822 Contact with and (suspected) exposure to COVID-19; G47.00 Insomnia, unspecified
CPT/HCPCS: 36415; 71045; 80053; 83880; 84484; 85025; 87426; 93005; 96374; 99285; J1940; Q0092

== ENCOUNTER 2023-02-25 13:34 | Emergency (ER) | payer OTHER ==
[~2023-02-25] VITALS: Ht 167.6 cm; Wt 99.8 kg
[~2023-02-25 13:34] MED LIST changes: +ATA25 PO
[2023-02-25 13:45] VITALS: BP 116/75; PULSE 81; RESP 18; TEMP 97.1; O2SAT 97
== END 2023-02-25 14:48 | disposition home or self-care (01) ==
LOC: MED 13:34
DX: S93.691A Other sprain of right foot, initial encounter (principal); I50.9 Heart failure, unspecified; Z88.0 Allergy status to penicillin; Z79.899 Other long term (current) drug therapy; X58.XXXA Exposure to other specified factors, initial encounter; Y93.89 Activity, other specified; Y92.89 Other specified places as the place of occurrence of the external cause; Y99.8 Other external cause status
CPT/HCPCS: 73630; 99283